=== PATIENT | female | born 1965 | race Caucasian/White ===

== ENCOUNTER 2024-07-01 06:31 | Day surgery (SDC) | payer OTHER, SELFPAY | END 2024-07-01 12:14 | disposition home or self-care (01) | LOC: GI 06:31 | PROVIDERS: ATTENDING PHYSICIAN Internal Medicine Gastroenterology; FAMILY PHYSICIAN Family Medicine | DX: R13.10 Dysphagia, unspecified (principal); K44.9 Diaphragmatic hernia without obstruction or gangrene; K31.7 Polyp of stomach and duodenum; K22.2 Esophageal obstruction | CPT/HCPCS: 43249; 43239; 88305 ==

== ENCOUNTER 2024-08-17 06:17 | Day surgery (SDC) | payer OTHER, SELFPAY | END 2024-08-17 11:05 | disposition home or self-care (01) | LOC: GI 06:17 | PROVIDERS: ATTENDING PHYSICIAN Internal Medicine Gastroenterology | DX: Z12.11 Encounter for screening for malignant neoplasm of colon (principal); D12.0 Benign neoplasm of cecum; K57.30 Diverticulosis of large intestine without perforation or abscess without bleeding; K64.0 First degree hemorrhoids | CPT/HCPCS: 45385; 88305 ==

== ENCOUNTER 2025-03-01 13:22 | Inpatient (IN) | payer OTHER, SELFPAY ==
[2025-03-01] VITALS (10 sets, daily range): BP systolic 122–163; BP diastolic 62–98; PULSE 80–109; BMI 26.8; BMI 27.3
[2025-03-01 09:00] LABS: Hematocrit 45.7 % (37.0-47.0); Hemoglobin 15.6 g/dL (12.0-16.0); Mean Corp Hgb Conc. 34.1 g/dL (33.0-37.0); Mean Corpuscular Volume 87.0 fL (81.0-99.0); Nucleated Red Blood Cells % 0 %; Platelet Count 220 10^3/uL (130-400); Red Cell Dist. Width 13.2 % (11.5-14.5)
[2025-03-01 09:34] LABS: ALT (SGPT) 20 U/L (0-35); AST (SGOT) 29 U/L (14-36); Albumin 5.2 g/dl (3.5-5.0); Alkaline Phosphatase 126 U/L (38-126); Blood Urea Nitrogen 13 mg/dl (7-17); Calcium 9.6 mg/dl (8.4-10.2); Carbon Dioxide 29 mmol/L (22-30); Chloride 97 mmol/L (98-107); Glucose 101 mg/dl (70-99); Potassium 2.9 mmol/L (3.5-5.1); Sodium 139 mmol/L (135-145); Total Protein 7.9 g/dl (6.3-8.2); eGFR > 60.00
[2025-03-01 09:42] LABS: Troponin I 0.080 ng/ml
--- NOTE | 2025-03-01 10:34 | ED.GENMED ---
History of Present Illness
General
Chief Complaint: Dizziness
Source: patient
Time Seen by Provider: 03/01/25 10:05
History of Present Illness
History of Present Illness:
59-year-old female presents to the emergency room complaining of having episode where she felt she was going to pass out. Patient awoke this morning and while getting out of bed began to feel lightheaded. She felt like she might pass out. She
bent forward to put her head between her knees and began to feel paresthesias in her upper extremities. She then began to experience spasm in her hands. Patient agrees she may have been breathing rapidly at this time. She never had a full loss of
consciousness. After period time she began to feel better. She came to the emergency room for evaluation. At this time she feels pretty much back to her baseline. Patient notes that her blood pressure has been poorly controlled recently. She
has been measuring it at home and it is frequently elevated in the 160s to 180s. Her primary care provider has been titrating up her metoprolol and recently added hydrochlorothiazide. Patient denies ever having any chest pain. She denies any
chest pain with exertion or shortness of breath out of proportion to exertion.
Phy Exam
Physical Exam
Physical Exam:
General: Awake, Alert, Oriented X3. No acute distress.
Vitals: unremarkable
Head: Atraumatic
Eyes: Pupils equal, EOMI
Throat: Airway intact, no exudates
Neck: Trachea midline
Lungs: Clear and equal b/l
Heart: Regular rate, no murmurs
Abd: Soft, Nontender, No pulsatile mass
Neuro: Nonfocal
Skin: Warm, dry, no rash
Extremities: pulses equal b/l, no edema
Course
Orders/Labs/Results
Orders:
Orders
03/01/25 08:30
Electrocardiogram (*1) Urgent
Reason for Study: Vertigo / Dizzy
03/01/25 08:31
EKG- Treatment ONCE
03/01/25 08:40
Complete Blood Count/With Diff Urgent
Comprehensive Metabolic Panel Urgent
Troponin I Urgent
03/01/25 10:34
Electrocardiogram (*1) Urgent
Reason for Study: Vertigo / Dizzy
EKG- Treatment ONCE
03/01/25 10:52
Potassium Chloride 10% Elixir [KCl Elixir] 40 meq PO NOW STA
03/01/25 11:14
Echo 2D MMode Color/Doppler Routine
Reason for Study: near syncope, abnormal troponin
03/01/25 11:25
Troponin I Urgent
03/01/25 12:30
Aspirin Chewable [Low Strength Aspirin] 324 mg PO NOW STA
03/01/25 12:51
Orthostatic Vital Signs As Directed
Orthostatic VS Frequency: Now
03/01/25 12:52
Admit/Transfer Patient As Directed
Co-Sign Provider:
Level of Care: Inpatient admission
Assign to:: IVU
Physician / Group: Hospitalist
Diagnosis: elevated troponin
Reason for Hospitalization: Elevated troponin
Expected length of stay greater than two midnights?: Yes
ELOS- Estimated Length of Stay in days: 3
I certify the patient meets the requirements for IP care: Yes
PRN Pain Medication Management As Directed
May give lesser potent ordered pain med per pt: Yes
preference::
Protocol:: Medication orders for pain may be administered in a
manner that supports deferring to patient preference
when the pt is:
- Requesting an ordered lesser potent pain medication.
Least to most potent pain medications are defined
as: acetaminophen < NSAID < tramadol < opioids
(morphine, oxycodone, hydromorphone).
- Requesting a lesser dose of the same medication IF
ORDERED.
- Requesting a less intrusive route of administration
if both routes are prescribed by the provider (PO <
IV).
03/01/25 12:55
Code Status As Directed
Resuscitation Status: Full Code
03/01/25 13:00
EKG [Electrocardiogram (*1)] Routine
Reason for Study: Abnormal EKG
Comment: Please repeat after potassium replaced . TY.
03/01/25 13:18
D-Dimer Urgent
03/01/25 15:00
Potassium Routine
Troponin I Routine
03/01/25 16:00
Losartan [Cozaar] 25 mg PO DAILY
03/02/25 Breakfast
NPO
Allow oral meds: Yes
Allow clear liquids: No
BMP [Basic Metabolic Panel] IN AM
Hgba1c [Glycohemoglobin (HgbA1c)] IN AM
Lipid Profile [Cardiovascular Evaluation] IN AM
NM Cardiac Stress IN AM
Comment:
Reason For Exam: abnormal troponin
03/02/25 08:00
Nuclear/stress Exercise (*7) Routine
Reason for Study: abnormal troponin
Comment: Dr. Ruvalcaba
Aspirin Chewable [Low Strength Aspirin] 81 mg PO DAILY
Abnormal Lab Results
03/01/25 03/01/25
08:40 11:25
MPV 10.9 H fL
(7.4-10.4)
Absolute Lymphs (auto) 1.1 L 10^3/uL
(1.2-3.4)
Neutrophils % 76.0 H %
(42.2-75.2)
Lymphocytes % 17.4 L %
(20.5-51.1)
Potassium 2.9 L mmol/L
(3.5-5.1)
Chloride 97 L mmol/L
(98-107)
Glucose 101 H mg/dl
(70-99)
Troponin I 0.080 H* ng/ml 0.120 H* D ng/ml
Albumin 5.2 H g/dl
(3.5-5.0)
03/01/25 08:40
03/01/25 08:40
Vital Signs
Initial and Last Documented VS:
Initial Vital Signs
Temp Pulse Resp BP Pulse Ox
98.3 F 101 16 163/98 98
03/01/25 08:25 03/01/25 08:25 03/01/25 08:25 03/01/25 08:25 03/01/25 08:25
Last Documented Vital Signs
Temp Pulse Resp BP Pulse Ox
98.3 F 104 18 136/63 94
03/01/25 08:25 03/01/25 13:31 03/01/25 11:00 03/01/25 11:00 03/01/25 11:00
MDM/Problems Addressed
Differential Diagnosis Includes:
Vasovagal event, dysrhythmia, hyperventilation, ACS
MDM/Problems Addressed:
Patient presents after a near syncopal episode at home. She did have paresthesias of both of her hands. Initially this sounded like hyperventilation however the patient's troponin is a bit elevated at 0.08. Other labs are unremarkable. Repeat
EKG shows no real ischemic changes. Case discussed with Dr. Ruvalcaba who came and evaluated the patient. Echocardiogram shows no focal wall motion abnormality. Repeat troponin shows an upward trend. Patient will require hospitalization for further
evaluation of this abnormal troponin.
*Pulse Oximetry
SaO2: 98
Oxygen Mode of Delivery: Room air
Patient hypoxic: no
*EKG
Interpreted by ED Provider?: Yes
Comparison EKG: no comparison EKG present
Heart Rate: 80
Rate: normal
Rhythm: sinus
[place]: normal axis
Interval: normal interval
QRS Pattern: normal QRS
Ischemia: non-specific ST changes
*Traditional Chinese Herbalist Interpretation
Rate: normal
Interpretation: normal
Rhythm: sinus
*Critical Care Note
Total Time (30-74mins, 75-104mins- exclusive of procedures): Not Applicable
ED Attending Note
-
Portions of this chart may have been created with voice recognition software.� Occasional wrong word or��sound alike� substitutions may have occurred due to the inherent limitations of voice recognition software.
Discharge Plan
Departure
Patient Disposition: Admit
Date of Disposition: 03/01/25
Time of Disposition: 12:29
Presentation/result/management discussed w/ accepting MD/DO: Hospitalist
Condition: Fair
Discharge Problem:
Near syncope, Elevated troponin
Interventions
Interventions:
*Risk Screen - Suicide Last Done: 03/01/25 08:25
*General Assessment Last Done: 03/01/25 08:25
*Neglect/Abuse Screening Last Done: 03/01/25 08:25
*ED COVID-19 Vaccine History Last Done: 03/01/25 08:25
*ED Influenza Vaccine History Last Done: 03/01/25 08:25
[facility] Fall Risk Assessment Tool Last Done: 03/01/25 11:15
ED- Neurological Assessment Last Done: 03/01/25 11:18
ED Swallowing Screen Last Done: 03/01/25 11:18
[2025-03-01] MEDS: KCL ELIXIR 40 MEQ PO (11:16)
--- NOTE | 2025-03-01 11:16 | CON.CAR ---
Addendum entered and electronically signed by Link Ruvalcaba MD 03/01/25 12:39:
I saw and examined the patient independently and performed majority of MDM.
The GALLERY OR MUSEUM GUIDE's note was reviewed and I agree with the note with changes/additions below.
Comment: 59 yo female with PMH of HTN, dyslipidemia presents to ED with dizziness, pre-syncope. She was recently started in HCTZ. No chest pain. Exam with RRR, no murmurs, no edema. EKG: NSR, nonspecific ST abnl. Echo: normal, except for LVH. TnI
0.12 and rising. K 2.9.
Pre-syncope, elevated troponin. Does not seem like ACS, however troponin continues to rise, and etiology is unclear. Echo with normal LVEF and wall motion. ASA 324mg. Trend trop: based on trend, to decide on stress test vs cath in AM.
Severe hypokalemia. Stop HCTZ. Replete K. Recheck labs in afternoon.
HTN. She reports has been difficult to control. Stop HCTZ. Start losartan. Hold beta don for stress test.
Original Note:
Consultation
Consultation Request
Date/Time Consultation Requested: 03/01/25 1046
Date/Time Consultation Performed: 03/01/25 1100
Requesting Provider: Dr. Go
Performing Provider: Maame APODACA for Dr. Ruvalcaba
Reason for Consultation: near syncope, abnormal troponin
Medical History
-
Chief Complaint: near-syncope
History of Present Illness:
59 y/o female with hypertension and dyslipidemia. She also has a history of what sounds to be vasovagal syncope with GI illnesses (faints with vomiting). She is here for evaluation after she woke up this AM and when she stood up she felt her typical
pre-syncopal symptoms of issue with vision change and diaphoresis and light-headedness. She felt dehydrated. She drank water and sat. She had b/l arm tingling, which prompted her to call her son from upstairs and have him call 911. She has felt
better since being in the ER. She looks well. EKG unremarkable. Troponin 0.080. No CP. Potassium 2.8 and being replaced. 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
With this, she thinks her breathing with exertion has been slightly more noticeable, but says no SOB. She reports she was started on HCTZ on Thursday since her BP's have been elevated. She has had BP's as high as 180/100 on home checks at times. She
is being treated for a UTI with antibiotics. Finally, she reports she had a very traumatic day yesterday and wonders if that has contributed.
Past Medical History
Past Medical History: HTN and Hypercholesterolemia
Social History
Tobacco: Non-Smoker
Alcohol: Daily (about 2 glasses of wine)
Family History
Family History: Adopted
Allergies / Home Medications
Allergy/AdvReac Type Severity Reaction Status Date / Time
No Known Allergies Allergy Verified 03/01/25 08:30
�Medication �Instructions �Recorded �Confirmed �Type
atorvastatin 20 mg tablet (Lipitor) 20 mg PO QPM High Cholesterol 03/01/25 03/01/25 History
ciprofloxacin HCl 500 mg tablet 500 mg PO BID Infection 03/01/25 03/01/25 History
(Cipro)
hydrochlorothiazide 25 mg tablet 25 mg PO DAILY Fluid 03/01/25 03/01/25 History
Retention/Swelling
metoprolol tartrate 100 mg tablet 100 mg PO DAILY Heart 03/01/25 03/01/25 History
(Lopressor) Disease/Condition
Review of Systems
-
History Source: Patient
All other systems: Negative unless noted
Constitutional: Other (near syncope as described)
Physical Exam
Vital Signs
Temp Pulse Resp BP Pulse Ox
98.3 F 87 18 136/63 94
03/01/25 08:25 03/01/25 11:00 03/01/25 11:00 03/01/25 11:00 03/01/25 11:00
Lab Results
03/01/25 08:40
03/01/25 08:40
Troponin I 0.080 ng/ml H* 03/01/25 08:40
Physical Exam
General: Well Developed, Well Nourished and No Apparent Distress
HEENT: Normocephalic and Anicteric
Respiratory: Clear and Non Labored Respirations
Cardiac: Regular Rhythm
Musculoskeletal: No Edema
Skin: Warm and Dry
Neuro: AO x 3
Psych: Calm
Impression / Plan
-
Near-syncope:
-etiology not totally clear, but story does sound consistent with orthostasis, as she did feel dehydrated and was recently started on HCTZ.
-tele stable in SR, checking echo now
Abnormal troponin:
-etiology unclear, no CP. EKG with NS ST abnormalities.
-troponin 0.08. checking another now.
-no CP
Hypokalemia: severe
-2.9
-being replaced
-repeat EKG after replacement
-stop HCTZ
-repeat this afternoon
Hypertension:
-on HCTZ and metoprolol
-hypokalemia is noted
-BP's not well controlled and a different regimen will likely be better for her moving forward
HLD:
-continue statin
Data Reviewed
-
EKG: Tracing Personally Visualized and interpreted (SR with SA 80 BPM, NS ST abnormality)
Medical Tests (Nuc Med, Echo etc): Other (echo is ordered and pending)
Labs: Labs Reviewed by me
[2025-03-01 12:05] LABS: Troponin I 0.120 ng/ml
--- NOTE | 2025-03-01 12:29 | W.PN.UPDATE ---
Addendum entered and electronically signed by Rupali Leiva MD 03/01/25 17:51:
Hypokalemia in setting of HCTZ use
-repleted, recheck again this evening
-hold HCTZ now and at discharge
Addendum entered and electronically signed by Rupali Leiva MD 03/01/25 13:07:
Patient recently had urinary burning and was started on Cipro for UTI. s/p 2 days with resolution of symptoms. Will order 1 dose of IV Ceftriaxone to complete a 3 day course (avoid Cipro in case related to her presentation of feeling unwell).
Original Note:
Update Note
Progress Note Update
This is an addendum to H&P written by Resident Physician Dr. Eric Lindsey
I saw and examined the patient.
The MULTIPLEX OPERATOR's note was reviewed and I agree with the note.
Comment:
Ms. Emilie Middleton is a 59 yo woman with hx essential HTN, HLD presents to the ER after syncopal episode. She was recently started on HCTZ on Thursday for elevated BP's. When she woke up this morning she felt dizzy and lightheaded. This was associated
with paraesthesias. She denies full loss of consciousness.
Triage VS: T 98.3, P 101, RR 16, BP 163/98, SpO2 98%
On exam patient is AAO x 3, in no distress; CV: S1, S2, RRR; Chest clear, no LE swelling
LABS: WBC 6.3, Hg 15.6, PLT 220, Na 139, K+ 2.9, CO2 29, BUn 13, Cr 0.7, Glucose 101, liver enzymes WNL
Trop 0.08 --> 0.120
EKG: NSR, non-specific T wave abnl and increased q waves III 2nd EKG
TTE 03/01/25
SUMMARY
1. Normal biventricular size and systolic function, with no regional wall motion abnormalities. Estimated LVEF 60-65%.
2. No significant valve disease.
3. No prior study for comparison.
Near-syncope
Elevated Troponin, non-ischemic myocardial injury versus NSTEMI
mild EKG changes
-admit to IVU
-order Orthostats now
-trend Troponin
-TTE results above
-appreciate Cardiology
-s/p Asa 325mg in ER; new start Aspirin 81mg PO QD
-continue HOT BLASTER Statin
-check Lipid profile, A1c
-NPO after MN for stress test
Essential HTN
-hold HOT BLASTER Metoprolol for stress test
-stop HCTZ, new start Losartan
HLD
-HOT BLASTER Statin
Remainder of plan per resident physician note
--- NOTE | 2025-03-01 13:07 | HPS.HSE ---
Family Physician
-
Family Physician: Peggy Sim
Chief Complaint
-
Presyncope
History of Present Illness
59-year-old female with history of hypertension hyperlipidemia presents complaining of lightheadedness, tingling in both her arms. Patient's states that she woke up this morning and felt lightheaded after few minutes she noticed tingling in both
her arms. She denies chest pain, palpitations, shortness of breath. She admits to feeling weak in her arm and she was not able to hold a coffee cup. She notes that hydrochlorothiazide was added recently by her primary care physician. She was
also diagnosed with a UTI and was started on ciprofloxacin 2 days ago. She denies having symptoms of dysuria, fever, chills right now.
Medical History
Past Medical History
Past Medical History: Reports HTN and Hypercholesterolemia
Past Surgical History: Reports None
Social History
Tobacco: Former Smoker
Alcohol: None
Drug: None
Living: With Family
Employment: Employed
Family History
Family History: Not pertinent
Allergies / Home Medications
Allergies reflects when Allergies were last updated in [facility].
Home Medications with original date entered in [facility]
Allergy/Medication List:
Allergies
Allergy/AdvReac Type Severity Reaction Status Date / Time
No Known Allergies Allergy Verified 03/01/25 08:30
Home Medications
atorvastatin 20 mg tablet (Lipitor) 20 mg PO QPM High Cholesterol 03/01/25
ciprofloxacin HCl 500 mg tablet (Cipro) 500 mg PO BID Infection 03/01/25
hydrochlorothiazide 25 mg tablet 25 mg PO DAILY Fluid Retention/Swelling 03/01/25
metoprolol tartrate 100 mg tablet (Lopressor) 100 mg PO DAILY Heart Disease/Condition 03/01/25
Review of Systems
-
History Source: Patient
A 12 point ROS was completed and negative except as noted: Yes
Physical Exam
Vital Signs
Vital Signs
Temp Pulse Resp BP Pulse Ox
98.3 F 94 18 136/63 94
03/01/25 08:25 03/01/25 11:17 03/01/25 11:00 03/01/25 11:00 03/01/25 11:00
Physical Exam
General: No Apparent Distress, Comfortable and Conversant
HEENT: NormoCephalic, Anicteric and Moist mucous membranes
Respiratory: Clear
Cardiac: S1/S2 and Regular Rhythm
GI: Soft, Non Tender, Non Distended and Normal Bowel Sounds
Musculoskeletal: No Edema
Skin: Warm and Dry
Neuro: AO x 3 and Nonfocal/grossly intact
Hematologic/Lymphatic: No Lymphadenopathy
Psych: Calm
Laboratory Results
-
03/01/25 08:40
Laboratory Results
Total Bilirubin 0.8 mg/dl (0.2-1.3) 03/01/25 08:40
AST 29 U/L (14-36) 03/01/25 08:40
ALT 20 U/L (0-35) 03/01/25 08:40
Alkaline Phosphatase 126 U/L (38-126) 03/01/25 08:40
Troponin I 0.120 ng/ml H* D 03/01/25 11:25
Data Reviewed
-
Medical Tests (Nuc Med, Echo, EKG etc): Report Reviewed by me and Discussed with Physician
Lab Data: Labs Reviewed by me and Discussed with Physician
Impression/Plan
-
IMPRESSION:
Near syncope
Elevated troponin
Hypokalemia
History of UTI
Essential hypertension
Hyperlipidemia
PLAN:
Near syncope
with Elevated troponin on arrival to ED, 0.08, 0.12
NSTEMI vs non ischemic myocardial injury
Trend troponin Q6
Plan for nuclear stress test tomorrow
Monitor blood pressure closely
Check orthostatic vitals
Hold metoprolol prior to stress test
Hold hydrochlorothiazide
Continue losartan for BP control
N.p.o. after midnight
Hypokalemia
Replete potassium
Hold hydrochlorothiazide
Check BMP in the evening and a.m.
History of UTI
Diagnosed 2 days ago in primary care office
Hold ciprofloxacin, transition to ceftriaxone
Monitor for white count and temperature curve
Essential hypertension
not on first-line medication, on metoprolol tartrate and hydrochlorothiazide
Hold hydrochlorothiazide
Continue losartan
Hold metoprolol prior to stress test
Hyperlipidemia
Continue atorvastatin
Check lipid profile
Full code
SCD
Low-sodium diet
[2025-03-01] MEDS: LOW STRENGTH ASPIRIN 324 MG PO (13:20)
[2025-03-01 13:49] LABS: D-Dimer < 0.27 ug/mlFEU (0.00-0.50)
[2025-03-01 15:18] LABS: Potassium 3.0 mmol/L (3.5-5.1)
[2025-03-01 15:34] LABS: Troponin I 0.091 ng/ml
[2025-03-01] MEDS: COZAAR 25 MG PO (15:43)
[2025-03-01] MEDS: ROCEPHIN 1000 MG IV (15:43)
[2025-03-01] MEDS: STERILE WATER FOR INJECTION 10 ML IV (15:43)
[2025-03-01] MEDS: KCL 40 MEQ PO ×2 (16:06→22:22)
--- NOTE | 2025-03-01 16:17 | CM ---
Chart reviewed. Patient is independent of ADLS, lives with her son in a [address], 2 SYLVIA, 0 DME. Plan is for the patient to return home. CM to follow
[2025-03-01 16:35] LABS: HDL Cholesterol 95 mg/dl; LDL Cholesterol, Calculated 116 mg/dl; Magnesium 1.8 mg/dl (1.6-2.3); Very Low Density Lipoprotein 11 mg/dl (0-30)
[2025-03-01] MEDS: TYLENOL 650 MG PO (17:30)
[2025-03-01] MEDS: LIPITOR 20 MG PO (17:32)
--- NOTE | 2025-03-01 17:36 | W.PN.UPDATE ---
Update Note
Progress Note Update
Orthostatic VS done with increase in HR from 80 to 109. I will give 500 cc bolus.
[2025-03-01] MEDS: NSS 500 IV (18:17)
--- NOTE | 2025-03-01 19:44 | PTCARENOTE ---
Pt admitted from ED for near syncope and tingling in bilateral arms. Pt denied any discomfort on arrival, pt not orthostatic. Potassium 2.9 on admission, rechecked after 40MEQ in Ed, still only 3.0. Additional 40MEQ given. Pt on fall precautions and
will call for assistance when needed. Telemetry shows sinus rhythm. Plan for stress test vs cardiac cath in am.
--- NOTE | 2025-03-01 20:30 | PTCARENOTE ---
Assumed care of patient at change of shift. Patient is AAOx3, VSS, Sinus rhythm on telemetry. MSAS score = 0. Patient denies complaints at this time. Plan of care discussed, reinforced sitting before standing and ringing for assistance, call
ortega within reach.
[2025-03-01 20:58] LABS: Potassium 3.4 mmol/L (3.5-5.1)
--- NOTE | 2025-03-01 22:30 | PTCARENOTE ---
Potassium lab result = 3.4. Hospitalist notified and ordered 40 meq of PO KCL.
[2025-03-02 02:38] VITALS: BMI 27.5
[2025-03-02 02:41] VITALS: BP 118/63
[2025-03-02 03:09] LABS: Hematocrit 37.5 % (37.0-47.0); Hemoglobin 12.8 g/dL (12.0-16.0); Mean Corp Hgb Conc. 34.1 g/dL (33.0-37.0); Mean Corpuscular Volume 87.4 fL (81.0-99.0); Nucleated Red Blood Cells % 0 %; Platelet Count 185 10^3/uL (130-400); Red Cell Dist. Width 13.6 % (11.5-14.5)
[2025-03-02 03:16] LABS: Urine Character Clear (Clear)
[2025-03-02 03:19] LABS: INR 1.02; PT 13.2 Sec (11.4-14.6)
[2025-03-02 03:20] LABS: APTT 28.7 Sec (23.4-35.0)
[2025-03-02 03:34] LABS: Blood Urea Nitrogen 10 mg/dl (7-17); Calcium 9.2 mg/dl (8.4-10.2); Carbon Dioxide 23 mmol/L (22-30); Chloride 107 mmol/L (98-107); Estimated Creatinine Clearance 101 ml/min; Glucose 92 mg/dl (70-99); HDL Cholesterol 72 mg/dl; LDL Cholesterol, Calculated 84 mg/dl; Potassium 4.0 mmol/L (3.5-5.1); Sodium 138 mmol/L (135-145); Very Low Density Lipoprotein 11 mg/dl (0-30); eGFR > 60.00
[2025-03-02 06:59] VITALS: BP 141/60
[2025-03-02] MEDS: LOW STRENGTH ASPIRIN 81 MG PO (07:56)
[2025-03-02] MEDS: TYLENOL 650 MG PO (07:56)
[2025-03-02] MEDS: COZAAR 25 MG PO (07:57)
[2025-03-02] MEDS: FOLVITE 1 MG PO (07:57)
[2025-03-02] MEDS: THIAMINE INJECTION 200 MG IV (07:57)
--- NOTE | 2025-03-02 08:53 | W.PN.CD ---
Today's Communication / Plan
-
Nuclear stress today
Impression / Plan
-
59 yo female with PMH of HTN, dyslipidemia presents to ED with dizziness, pre-syncope, elevated troponin. She was recently started on HCTZ as outpatient.
Pre-syncope, elevated troponin. Peak 0.12. Does not seem like ACS. Echo unremarkable. Nuclear stress today. May be acute non-ischemic myocardial injury in setting of severe hypokalemia.
Severe hypokalemia. Stopped HCTZ. Repleted K. Resolved.
HTN. She reports has been difficult to control. Stopped HCTZ. Start losartan. Hold beta don for stress test. Will change to coreg after stress test.
Physical Exam
Vital Signs/Labs
Vital Signs
Temp Pulse Resp BP Pulse Ox
98.5 F 84 20 141/60 96
03/02/25 06:59 03/02/25 08:00 03/02/25 06:59 03/02/25 06:59 03/02/25 08:22
03/01/25 03/02/25 03/03/25
06:59 06:59 06:59
Actual Weight 72.6 kg
03/02/25 02:55
03/02/25 02:55
PT 13.2 Sec (11.4-14.6) 03/02/25 02:55
INR 1.02 03/02/25 02:55
APTT 28.7 Sec (23.4-35.0) 03/02/25 02:55
Magnesium 1.8 mg/dl (1.6-2.3) 03/01/25 08:40
Triglycerides 56 mg/dl (10-149) 03/02/25 02:55
LDL Cholesterol, Calc 84 mg/dl 03/02/25 02:55
VLDL Cholesterol, Calc 11 mg/dl (0-30) 03/02/25 02:55
HDL Cholesterol 72 mg/dl 03/02/25 02:55
LAB Results
03/01/25 03/01/25 03/01/25
08:40 11:25 14:55
Troponin I 0.080 H* 0.120 H* D 0.091 H*
03/01/25 03/01/25
15:12 21:12
Troponin I Cancelled Cancelled
Physical Exam
Constitutional: No acute distress and Comfortable
EENT: Moist mucous membranes
Cardiovascular: Rhythm & rate is regular, Pedal edema is absent, JVD pressure is normal and Systolic murmur absent
Respiratory: Respiratory effort normal and Lungs clear to auscul.
Neuro/Psych: AO x 3
Data Reviewed
-
Date of Service: March 02, 2025
Labs: Labs Reviewed by me
--- NOTE | 2025-03-02 09:03 | W.PN.HOSP.TC ---
Addendum entered and electronically signed by Christopher Khalil MD 03/02/25 15:28:
Addendum
Nuclear test was done, unremarkable, discussed with cardiology, okay to discharge home but change blood pressure medication regimen to carvedilol and losartan. I met the patient again with her son. Counseled regarding potential side effects of
carvedilol and losartan including angioedema, renal injury, hyperkalemia. She verbalized understanding. She is requesting discharge and no need for off work note.
Total discharge time spent to see the patient, examined the patient, reviewed data and lab result, discuss discharge plan with patient, her son, cardiology, nursing staff around 69 minutes
Original Note:
Today's Communication/Plan
-
NO need for MSAS,
Stress test
Assessment / Plan
Assessment / Plan
Physical Exam
General: No Apparent Distress, Comfortable and Conversant
HEENT: NormoCephalic, Anicteric and Moist mucous membranes
Respiratory: Clear
Cardiac: S1/S2 and Regular Rhythm
GI: Soft, Non Tender, Non Distended and Normal Bowel Sounds
Musculoskeletal: No Edema
Skin: Warm and Dry
Neuro: AO x 3 and Nonfocal/grossly intact
Hematologic/Lymphatic: No Lymphadenopathy
Psych: Calm
A/p:
Near syncope
Resolved
Feels better, uncomfortable bed in hospital to sleep
No chest pain
No sob
Peak 0.12. Does not seem like ACS. Echo unremarkable
Troponin c/w acute non-ischemic myocardial injury in setting of severe hypokalemia.
Trend troponin Q6
Plan for nuclear stress test today
Appreciate cardiology help
Hypokalemia
Resolved.
History of UTI
Diagnosed 2 days ago in primary care office
Hold ciprofloxacin, transition to ceftriaxone
UA is clear. No leukocytosis, no dysuria, no fever or flank pain.
Essential hypertension
not on first-line medication, on metoprolol tartrate and hydrochlorothiazide
Hold hydrochlorothiazide
Continue losartan
Hold metoprolol prior to stress test
Hyperlipidemia
Continue atorvastatin
Lipid panel showed LDL 84, HDL 72, total cholesterol 167, triglyceride 56
Hx of wine intake
Not regular intake, only social
AAOX3, lucid, no tremor
dc MSAS.
Full code
Total time spent to see the patient, examined the patient, reviewed data and lab result, discuss treatment plan with patient, nursing staff around 57 minutes
Anticipated Discharge: Within 24 hours
Subjective/Interval History
-
Date of Service: March 02, 2025
No chest pain
No sob
No fevers
Objective Data
-
Labs:
Laboratory Results
03/02/25
02:55
WBC 4.2 L
Hgb 12.8
Hct 37.5
Plt Count 185
PT 13.2
INR 1.02
APTT 28.7
Sodium 138
Potassium 4.0
Chloride 107
Carbon Dioxide 23
BUN 10
Creatinine 0.6
Glucose 92
Calcium 9.2
Vital Signs:
Vital Signs
Temp Pulse Resp BP Pulse Ox
98.5 F 84 20 141/60 96
03/02/25 06:59 03/02/25 08:00 03/02/25 06:59 03/02/25 06:59 03/02/25 08:22
I&O
03/01/25 03/02/25 03/03/25
06:59 06:59 06:59
Intake Total 1460 / 1460
Balance 1460 / 1460
[2025-03-02 09:44] LABS: Glycohemoglobin (HgbA1c) 5.2 % (4.0-5.9)
[2025-03-02 11:28] VITALS: BP 134/76
--- NOTE | 2025-03-02 12:39 | CM ---
Chart reviewed. Patient is independent of ADLS, lives with her in a 2 [address], 2 [place]LV[place], 0 DME. Offered patient substance abuse counseling and patient denied. Plan is for the patient to return home.
[2025-03-02] MEDS: COREG 6.25 MG PO (13:05)
--- NOTE | 2025-03-02 14:59 | PTCARENOTE ---
Pt had nuclear stress test, result discussed with Maame Gottlieb NP. Pt seen by . Telemetry and IV device removed. Discharge instructions reviewed with pt regarding medications and their possible side effects, reporting care and concerns and
follow up appt's. Excellent understanding verbalized. Pt ambulated out with her son and was discharged to home.
--- NOTE | 2025-03-02 15:22 | W.DCSUMMARY ---
Discharge Summary
Discharge Data
Date of Admission: 03/01/25
Date of Discharge: 03/02/25
-
Pending Results: No
Hospital Course
59 years old female who presented with weakness and near syncopal feeling. She reported paresthesia and spasm in her upper extremities. Blood work showed hypokalemia. No fever or chills. No leukocytosis. EKG was unremarkable. She had positive
troponin that peaked at 0.1 and then trended down. Echocardiogram was unremarkable. She was given potassium replacement therapy. No GI symptoms including vomiting or diarrhea. She was recently started on hydrochlorothiazide for treatment of
hypertension. Dispatcher Service Chief evaluated the patient. She had nuclear stress test that was unremarkable. Her blood pressure medication protocol was changed from metoprolol and hydrochlorothiazide to carvedilol and losartan. She was counseled
regarding potential side effects of carvedilol and losartan, she verbalized understanding. She remained hemodynamically stable. Potassium came back normal. She was advised to follow-up with her primary care doctor to repeat her blood work to
monitor potassium, renal function. Patient was discharged home in stable condition.
Discharge Plan
-
Patient Disposition: Home (Routine Discharge)
Discharge Diagnosis/Procedures: Hypertension
Hypokalemia
You received potassium replacement therapy. You are seen by proposal engineer. Had cardiac stress test which was unremarkable. Dispatcher Service Chief recommended to make changes changing your blood pressure medications as follows
Stop hydrochlorothiazide and metoprolol. Start develop
- Carvedilol, beta-don, potential side effects include hypotension, bradycardia, fatigue.
-Losartan, angiotensin II receptor don, potential side effects include hypotension, renal injury, hyperkalemia.
You will need to see your primary care doctor within a week and repeat the blood work.
Diet: As tolerated and Low Fat
Referrals:
Link Ruvalcaba MD [Active, Cardiology] - in four to six weeks
Referral Note: office will call to arrange
Peggy Sim MD [Family Provider, Family Practice] - in one week
Prescriptions:
New
carvedilol 6.25 mg Tablet
6.25 mg PO BID Qty: 60 0RF
losartan 25 mg Tablet
25 mg PO DAILY Qty: 30 0RF
Continued
atorvastatin [Lipitor] 20 mg Tablet
20 mg PO QPM
Discontinued
hydrochlorothiazide 25 mg Tablet
25 mg PO DAILY
metoprolol tartrate [Lopressor] 100 mg Tablet
100 mg PO DAILY
ciprofloxacin HCl [Cipro] 500 mg Tablet
500 mg PO BID
Rx Instructions:
FOR 3 DAYS STARTING 02/27/25
Discharge Orders:
Discharge Patient (As Directed); Ordered 03/02/25
Ordered By: Christopher Khalil
Care Plan Goals
Care Plan Goals:
Problem: Readiness for enhanced knowledge related to diagnosis and treatment plan
Goal: Understand your diagnosis and treatment plan needs, including medications if applicable.
Instructions: Know your diagnosis, underlying causes and treatment plan options, including medications if applicable. Consult with your health care team to learn about your diagnosis and treatment plan, including medications if applicable.
Discharge Date and Time
Discharge Date/Time: 03/02/25 14:25
Print Language: ICELANDIC
== END 2025-03-02 14:25 | disposition home or self-care (01) | DRG 316 ==
LOC: IVU 13:22
PROVIDERS: Nurse Practitioner; Nurse Practitioner Family; ADMITTING PHYSICIAN Student in an Organized Health Care Education/Training Program; ATTENDING PHYSICIAN Internal Medicine; CONSULT PHYSICIAN Internal Medicine; EMERGENCY PHYSICIAN Emergency Medicine; FAMILY PHYSICIAN Family Medicine
PROC: 3E033HZ Introduction of Radioactive Substance into Peripheral Vein, Percutaneous Approach (ICD-10-PCS; 2025-03-02)
PROC: 4A02XM4 Measurement of Cardiac Total Activity, External Approach (ICD-10-PCS; 2025-03-02)
DX: I5A Non-ischemic myocardial injury (non-traumatic) (principal); I10 Essential (primary) hypertension; R55 Syncope and collapse; E78.00 Pure hypercholesterolemia, unspecified; E87.6 Hypokalemia; Z79.899 Other long term (current) drug therapy; Z87.440 Personal history of urinary (tract) infections; Z87.891 Personal history of nicotine dependence; Z79.82 Long term (current) use of aspirin
CPT/HCPCS: 78452; 80048; 80053; 80061; 80306; 81003; 83036; 83735; 84100; 84132; 84484; 85025; 85379; 85610; 85730; 93005; 93017; 93306; 99285; A9500